=== PATIENT | male | born 1965 | race Caucasian/White ===

== ENCOUNTER 2021-05-19 07:24 | Emergency (ER) | payer OTHER ==
[~2021-05-19] VITALS: Ht 182.9 cm; Wt 108.9 kg
[~2021-05-19 07:24] MED LIST: CENTURY ULTIMA1 EAC1 PO; HYDR1TAB94 PO; LORPSEER12 PO
[2021-05-19] MEDS ORDERED: ROSUVASTATIN CA10 MG PO (07:36)
[2021-05-19] MEDS ORDERED: Norco 5-325 Ta1 EACH PO (08:34)
[2021-05-19] MEDS ORDERED: Robaxin750 MG PO (08:34)
[2021-05-19] MEDS ORDERED: IBUP800 PO (08:34)
== END 2021-05-19 09:42 | disposition home or self-care (01) ==
LOC: ER 07:24
DX: M54.16 Radiculopathy, lumbar region (principal); Z79.899 Other long term (current) drug therapy; Z88.0 Allergy status to penicillin; Z88.2 Allergy status to sulfonamides
CPT/HCPCS: 72100; 96372; 99283-25; A9270; J1885; J3301

== ENCOUNTER → 2021-06-05 | Outpatient (CLI) | payer OTHER ==
[~2021-06-05] MED LIST changes: +IBUP800 PO; +Norco 5-325 Ta1 EACH PO; +ROSUVASTATIN CA10 MG PO; +Robaxin750 MG PO
[2021-06-05 10:35] LABS: Source, Urine Clean Catch
[2021-06-05 13:16] LABS: Appearance, Urine Clear (Clear); Bilirubin, Urine Neg (Neg); Blood, Urine 5+ (Neg); Color, Urine Yellow (P-Yellow); Glucose Qualitative, Urine Neg (Neg); Ketones, Urine Neg (Neg); Leukocyte Esterase, Urine 1+ (Neg); Nitrite, Urine Neg (Neg); Protein, Urine Neg (Neg); Urobilinogen, Urine NORM (Normal)
[2021-06-05 14:00] LABS: Bacteria Few /hpf; Red Blood Cells, Urine 25-50 /hpf (0-2); Squamous Epithelial Cells Few /hpf (Few)
== END | disposition home or self-care (01) ==
LOC: LAB SHORT 10:33 → LAB 10:33
PROVIDERS: Internal Medicine
DX: R10.9 Unspecified abdominal pain (principal)
CPT/HCPCS: 81001; 87086

== ENCOUNTER 2025-06-11 07:13 | Day surgery (SDC) | payer BC ==
[~2025-06-11] VITALS: Ht 182.9 cm; Wt 104.0 kg
[2025-06-11] MEDS ORDERED: EZETIMIBE10 M6 (08:23)
[2025-06-11] MEDS ORDERED: COLCHICINE0.6 MG (08:24)
[2025-06-11 09:46] VITALS: BP 120/87
== END 2025-06-11 09:52 | disposition home or self-care (01) ==
LOC: ORSCSDS 07:13
PROVIDERS: Surgery
PROC: 0DJD8ZZ Inspection of Lower Intestinal Tract, Via Natural or Artificial Opening Endoscopic (ICD-10-PCS; principal; 2025-06-11 09:15)
DX: Z12.11 Encounter for screening for malignant neoplasm of colon (principal); K57.30 Diverticulosis of large intestine without perforation or abscess without bleeding; E78.2 Mixed hyperlipidemia; R73.9 Hyperglycemia, unspecified; Z79.899 Other long term (current) drug therapy
CPT/HCPCS: J2704; J7120